=== PATIENT | female | born 1970 | race Hispanic/Latino ===

== ENCOUNTER 2019-07-10 13:51 | Emergency (ER) | payer MEDICAID, OTHER | END 2019-07-10 16:11 | disposition home or self-care (01) | LOC: EDH 13:51 | DX: J06.9 Acute upper respiratory infection, unspecified (principal); E11.9 Type 2 diabetes mellitus without complications; I11.0 Hypertensive heart disease with heart failure; I50.9 Heart failure, unspecified; Z98.890 Other specified postprocedural states | CPT/HCPCS: 71045; 87804 ==

== ENCOUNTER 2022-01-17 22:17 | Emergency (ER) | payer OTHER ==
[~2022-01-17] VITALS: Ht 154.9 cm; Wt 136.1 kg
[2022-01-17 22:53] LABS: BASOPHILS % (AUTO) 1.1 % (0.0-5.0); EOSINOPHILS % (AUTO) 11.5 % (0.0-8.0); HEMATOCRIT 42.5 % (36-48); LYMPHOCYTES % (AUTO) 33.1 % (21.0-51.0); MEAN CORPUSCULAR HGB CONC 33.2 g/dL (32.0-36.0); MEAN CORPUSCULAR VOLUME 81.3 fL (79-99); PLATELET COUNT (AUTO) 375 K/uL (130-400); RED BLOOD CELL COUNT(AUTO) 5.23 MIL/uL (4.00-5.50); RED CELL DISTRIBUTION WIDTH 12.7 % (11.0-15.5); WHITE BLOOD COUNT (AUTO) 9.9 K/uL (4.8-10.8)
[2022-01-17 22:54] LABS: APPEARANCE,URINE CLEAR (CLEAR); BILIRUBIN,URINE NEGATIVE (NEGATIVE); COLOR,URINE YELLOW (YELLOW); GLUCOSE, URINE (UA) NEGATIVE (NEGATIVE); KETONES,URINE NEGATIVE (NEGATIVE); LEUKOCYTE ESTERASE ,URINE TRACE (NEGATIVE); NITRATE,URINE NEGATIVE (NEGATIVE); OCCULT BLOOD,URINE NEGATIVE (NEGATIVE); PROTEIN,URINE TRACE mg/dL (NEGATIVE); UROBILINOGEN,URINE 0.2 mg/dL (0.2-1.0)
[2022-01-17] MEDS ORDERED: DIPHENOXYLATE HCL/ATROPINE 2.5/0.025 MG TAB PO ONE (23:00)
[2022-01-17] MEDS ORDERED: LACTATED RINGERS 1000ML 1,000 ML IV ONE (23:00)
[2022-01-17] MEDS ORDERED: ONDANSETRON 4MG INJ IVP ONE (23:00)
[2022-01-17 23:08] LABS: ALBUMIN 3.3 g/dL (3.5-5.0); POTASSIUM 2.8 mmol/L (3.5-5.1); TOTAL PROTEIN, SERUM 8.2 g/dL (6.0-8.3)
[2022-01-17 23:22] LABS: BACTERIA,URINE Few /HPF (None Seen); RBC,URINE None Seen /HPF (0-1); SQUAMOUS EPITHELIAL CELL,UR Moderate /HPF (0-2)
[2022-01-17] MEDS ORDERED: KCL 20 MEQ ERTAB PO ONE (23:30)
[2022-01-18] MEDS ORDERED: ONDA-104 PO (02:49)
[2022-01-18] MEDS ORDERED: IBUP-1493 PO (02:54)
[2022-01-18 03:00] VITALS: BP 124/52
== END 2022-01-18 03:22 | disposition home or self-care (01) ==
LOC: EDH 22:17
DX: K80.20 Calculus of gallbladder without cholecystitis without obstruction (principal); E86.0 Dehydration; E87.6 Hypokalemia; Z20.822 Contact with and (suspected) exposure to COVID-19; E11.9 Type 2 diabetes mellitus without complications; E78.00 Pure hypercholesterolemia, unspecified; I11.9 Hypertensive heart disease without heart failure; Z79.899 Other long term (current) drug therapy
CPT/HCPCS: 99285; 96374; 87635; 96361; 82150; 84484; 80053; 85025; 87804 ×2; 81001; 36415; 93005; 76705; C9803; J7120; J2405

== ENCOUNTER 2022-02-06 23:04 | Emergency (ER) | payer OTHER ==
[~2022-02-06] VITALS: Ht 154.9 cm; Wt 132.4 kg
[~2022-02-06 23:04] MED LIST: IBUP-1493 PO; ONDA-104 PO
[2022-02-07] MEDS ORDERED: ACET-2079 PO (00:29)
[2022-02-07] MEDS ORDERED: IBUP-2070 PO (00:29)
[2022-02-07] MEDS ORDERED: KETOROLAC 60 MG VIAL (30MG/ML) IM ONE (00:30)
[2022-02-07] MEDS ORDERED: HYDROCODONE/ACETAMINOPHEN 5/325 MG TAB PO ONE (00:30)
[2022-02-07 00:50] VITALS: BP 144/68
== END 2022-02-07 01:02 | disposition home or self-care (01) ==
LOC: EDH 23:04
DX: M79.2 Neuralgia and neuritis, unspecified (principal); M79.602 Pain in left arm; E11.9 Type 2 diabetes mellitus without complications; E78.00 Pure hypercholesterolemia, unspecified; I10 Essential (primary) hypertension; M19.90 Unspecified osteoarthritis, unspecified site; Z79.1 Long term (current) use of non-steroidal anti-inflammatories (NSAID); Z79.899 Other long term (current) drug therapy
CPT/HCPCS: 99283; 96372; J1885

== ENCOUNTER 2022-10-11 10:09 | Emergency (ER) | payer BC, OTHER ==
[~2022-10-11] VITALS: Ht 154.9 cm; Wt 136.1 kg
[~2022-10-11 10:09] MED LIST changes: +ACET-2079 PO; +IBUP-2070 PO
[2022-10-11 10:49] VITALS: BP 197/75
[2022-10-11] MEDS ORDERED: CYCL10TA16 PO (11:13)
[2022-10-11] MEDS ORDERED: ORPHENADRINE CITRATE 30 MG/ML ML IM ONE (11:30)
== END 2022-10-11 12:20 | disposition home or self-care (01) ==
LOC: EDH 10:09
DX: M54.32 Sciatica, left side (principal); I10 Essential (primary) hypertension; E11.9 Type 2 diabetes mellitus without complications; E78.00 Pure hypercholesterolemia, unspecified; M19.90 Unspecified osteoarthritis, unspecified site; Z79.899 Other long term (current) drug therapy; Z98.890 Other specified postprocedural states
CPT/HCPCS: 99284; 73552; 96372; J2360

== ENCOUNTER 2022-10-24 19:59 | Emergency (ER) | payer BC ==
[~2022-10-24] VITALS: Ht 154.9 cm; Wt 135.2 kg
[~2022-10-24 19:59] MED LIST changes: +CYCL10TA16 PO
[2022-10-24] MEDS ORDERED: KETOROLAC 30MG VIAL (30MG/ML) IM ONE (22:30)
[2022-10-24] MEDS ORDERED: CYCLOBENZAPRINE HCL 10 MG TABLET PO ONE (22:30)
[2022-10-24] MEDS ORDERED: TRAMADOL HCL 50 MG TABLET PO ONE (22:30)
[2022-10-24 22:35] VITALS: BP 141/75
== END 2022-10-24 22:40 | disposition home or self-care (01) ==
LOC: EDH 19:59
DX: M54.42 Lumbago with sciatica, left side (principal); I11.0 Hypertensive heart disease with heart failure; I50.9 Heart failure, unspecified; E11.9 Type 2 diabetes mellitus without complications; F32.A Depression, unspecified; E78.00 Pure hypercholesterolemia, unspecified; Z79.1 Long term (current) use of non-steroidal anti-inflammatories (NSAID); Z79.899 Other long term (current) drug therapy
CPT/HCPCS: 99284; 96372; J1885

== ENCOUNTER 2024-11-11 12:12 | Emergency (ER) | payer BC ==
[~2024-11-11] VITALS: Ht 154.9 cm; Wt 135.2 kg
[~2024-11-11 12:12] MED LIST changes: -IBUP-1493 PO; -IBUP-2070 PO; +NAPR-1194 PO; -ONDA-104 PO
[2024-11-11 13:09] LABS: BASOPHILS # (AUTO) 0.04 K/uL (0.00-0.20); BASOPHILS % (AUTO) 0.5 % (0.0-5.0); EOSINOPHILS # (AUTO) 0.09 K/uL (0.00-0.70); HEMATOCRIT 38.9 % (36-48); IMMATURE GRANULOCYTE ABSOLUTE 0.02 K/uL (0-1); LYMPHOCYTES # (AUTO) 2.9 K/uL (1.0-4.8); LYMPHOCYTES % (AUTO) 33.6 % (21.0-51.0); MEAN CORPUSCULAR HEMOGLOBIN 27.3 pg (27.0-33.0); MEAN CORPUSCULAR HGB CONC 32.9 g/dL (32.0-36.0); MEAN CORPUSCULAR VOLUME 82.9 fL (79-99); MONOCYTES # (AUTO) 0.5 K/uL (0.1-1.0); MONOCYTES % (AUTO) 5.2 % (3.0-13.0); NEUTROPHILS # (AUTO) 5.2 K/uL (1.8-7.7); NEUTROPHILS % (AUTO) 59.5 % (40.0-77.0); PLATELET COUNT (AUTO) 379 K/uL (130-400); RED BLOOD CELL COUNT(AUTO) 4.69 MIL/uL (4.00-5.50); RED CELL DISTRIBUTION WIDTH 13.2 % (11.0-15.5); WHITE BLOOD COUNT (AUTO) 8.7 K/uL (4.8-10.8)
--- NOTE | 2024-11-11 13:12 | ERN ---
General Chief Complaint: Chest Pain Stated Complaint: CP, LEFT ARM PAIN Time Seen by MD: 12:14 Source: patient History of Present Illness Initial Comments Patient is a 54-year-old female coming in complaining of left arm pain. Patient states that the left arm pain began two days ago. She states that today the pain traveled to the chest in his reason why she was here. No Shortness of breath no fever. Allergies: Coded Allergies: No Known Drug Allergies (Unverified Allergy, Unknown, 01/17/22) Home Meds Active Scripts Naproxen (Naproxen) 500 Mg Tablet, 500 MG PO BID for 5 Days, #10 TAB Prov:CHANEL PEMBERTON 10/21/23 Acetaminophen with Codeine (Acetaminophen-Cod #3 Tablet) 300 Mg-30 Mg Tablet, 1 TAB PO Q4H PRN for M17.12 for 5 Days, #7 TAB Prov:CHANEL PEMBERTON 10/21/23 Cyclobenzaprine HCl (Flexeril) 10 Mg Tab, 10 MG PO TID PRN for MUSCLE SPASMS, #15 TAB Prov:VIRY DOMINGO 10/11/22 Past Medical History Past Medical History: CHF, Depression, Diabetes-Type II, High Cholesterol, Hypertension, Other Medical History Other: HX OF SCIATIC NERVE PAIN; Past Surgical History: Other, Surgical History Other: TUBAL LIGATION Family History Family History: CAD, DM, HTN Social History Social History: Negative, Lives with family Female( History) History: Not Applicable ROS Dictation CONSTITUTIONAL: No chills, no fever, no weakness, no diaphoresis, no malaise. HEAD/FACE: No signs of trauma. EENT: No eye pain, no blurred vision, no tearing, no double vision, no ear pain, no ear discharge, no nose pain, no nasal congestion, no throat pain, no throat swelling, no mouth pain. RESPIRATORY: No cough, no orthopnea, no SOB, no stridor, no wheezing. CARDIOVASCULAR: No chest pain, no edema, no palpitations, no syncope. GASTROINTESTINAL/ABDOMINAL: No abdominal pain, no constipation, no diarrhea, no nausea, no vomiting. GENITOURINARY: No abnormal discharge, no dysuria, no frequent urination, no hematuria. No complaints of pain in the genitals. MUSCULOSKELETAL: No back pain, no gout, no joint pain, no joint swelling, muscle pain, muscle stiffness, no neck pain. INTEGUMENTARY: No change in color, no change in hair/nails, no dryness, no lesion, no lumps, no rash. NEUROLOGICAL/PSYCH: No anxiety, not depressed, no emotional problem, no headache, no numbness, no pre-existing deficit, no history of seizures, no tremors, no weakness. HEMATOLOGIC/LYMPHATIC: Not anemic, no history of blood clots, no apparent bleeding, no bruising, glands not swollen. All Systems Negative, Except as Noted. Physical Exam Physical Exam Dictation VITAL SIGNS: Reviewed. GENERAL APPEARANCE: Alert, oriented x3, no acute distress, obese. HEAD AND FACE: Non-traumatic. EYES: PERRL, pink conjunctivas, eyelid no trauma, anterior chamber clear. EARS: Pinnas intact and no signs of trauma or erythema. Ear canals clear and no discharge. TMs no erythema. NOSE: No discharge, no bleeding. OROPHARYNX: Mouth normal, teeth no caries, tongue pink. Pharynx clear, no erythema. Tonsils no exudates, no abscesses noted. Mucous membrane moist. NECK: Supple, non-tender, no thyromegaly, no masses, no JVD, no bruits. BREAST: Deferred. CHEST: tenderness, no crepitus, no paradoxical movement, no retractions. LUNGS: Clear, well-ventilated, symmetric, no rales, no wheezing, no rhonchi, no stridor, good breath sounds bilaterally. HEART: Regular rate, regular rhythm, no murmur, no gallops. VASCULAR: No peripheral edema. ABDOMEN: Soft, positive bowel sounds, nondistended, no guarding, nontender, no rebound, no masses no hepatomegaly, no splenomegaly, no Garcia's sign, no hernias. RECTAL: Deferred. GENITAL: Deferred. NEUROLOGICAL: Normal speech, gross motor function intact, gross sensory function intact. MUSCULOSKELETAL: Neck nontender, full range of motion, back nontender, full range of motion. EXTREMITIES: Nontender, full range of motion. Left deltoid pain on palpation SKIN: Color pink, dry, no turgor, no rash, no lacerations, no abrasions, no contusions. LYMPHATICS: Deferred. Results Laboratory and Microbiology Lab and Micro Result Laboratory Tests Test 11/11/24 12:31 11/11/24 15:07 White Blood Count 8.7 K/uL (4.8-10.8) Red Blood Count 4.69 MIL/uL (4.00-5.50) Hemoglobin 12.8 g/dL (12.0-16.0) Hematocrit 38.9 % (36-48) Mean Corpuscular Volume 82.9 fL (79-99) Mean Corpuscular Hemoglobin 27.3 pg (27.0-33.0) Mean Corpuscular Hemoglobin Concent 32.9 g/dL (32.0-36.0) Red Cell Distribution Width 13.2 % (11.0-15.5) Platelet Count 379 K/uL (130-400) Mean Platelet Volume 9.9 fL (7.5-10.5) Immature Granulocyte % (Auto) 0.2 % (0-1) Neutrophils (%) (Auto) 59.5 % (40.0-77.0) Lymphocytes (%) (Auto) 33.6 % (21.0-51.0) Monocytes (%) (Auto) 5.2 % (3.0-13.0) Eosinophils (%) (Auto) 1.0 % (0.0-8.0) Basophils (%) (Auto) 0.5 % (0.0-5.0) Neutrophils # (Auto) 5.2 K/uL (1.8-7.7) Lymphocytes # (Auto) 2.9 K/uL (1.0-4.8) Monocytes # (Auto) 0.5 K/uL (0.1-1.0) Eosinophils # (Auto) 0.09 K/uL (0.00-0.70) Basophils # (Auto) 0.04 K/uL (0.00-0.20) Absolute Immature Granulocyte (auto 0.02 K/uL (0-1) Nucleated Red Blood Cells 0.0 % (0.0-0.19) Sodium Level 133 mmol/L (136-145) L Potassium Level 3.3 mmol/L (3.5-5.1) L Chloride Level 99 mmol/L (101-111) L Carbon Dioxide Level 33 mmol/L (21-32) H Blood Urea Nitrogen 9 mg/dL (7-18) Creatinine 0.7 mg/dL (0.5-1.0) Glomerular Filtration Rate Calc 102 mL/min (>90) Random Glucose 134 mg/dL (70-105) H Total Calcium 8.6 mg/dL (8.5-10.1) Total Creatine Kinase 52 U/L (21-232) Troponin I High Sensitivity 14 ng/L (4-50) 13 ng/L (4-50) B-Type Natriuretic Peptide 26 pg/mL (0-100) Labs Reviewed?: Yes EKG/XRAY/US/CT/MRI EKG Comment 10/2024 time 12:18 p.m. Ventricular rate 78 Sinus rhythm [place] [address] wave elevation or depression X-RAY Comment [address] [place] [id number] IMAGING REPORT Signed PATIENT: SP TIDWELL MR#: [id number] : 1970 SEX: F AGE: 54 LOCATION: [facility] ORDER 1220 STATUS: [facility] ER REPORT#: [id number] SERVICE 1219 REASON: CHEST PAIN ORDERING PHYSICIAN: OKSANA BEARDEN MD PROCEDURE: CXR1VW - CHEST 1VW CHEST 1VW HISTORY: Chest pain COMPARISON: 07/10/2009 FINDINGS: A frontal projection of the chest was obtained. No acute pulmonary infiltrates is seen. The heart is borderline enlarged. Prominent interstitial markings are seen. Degenerative changes are seen. No evidence of aortic calcification is seen. IMPRESSION: 1. No acute pulmonary infiltrate is seen. DICTATED BY: EFREM ZULETA MD DATE: 11/11/241409 ELECTRONICALLY SIGNED BY: EFREM ZULETA MD DATE: 11/11/24 1413 [facility] MDM: Differential diagnosis: Deltoid strain, chest pain, NSTEMI, ACS, STEMI Rationale: Tests considered and ordered secondary to shared decision making include: Previous outside records reviewed: Old ER visits. Risk of complication and/or morbidity or mortality of patient management: None Medications-Per medication reconciliation Patient is a 54-year-old female coming in to be evaluated for left shoulder pain. She states that the shoulder pain extended to her chest today causes distress in decided to come in for further evaluation. Patient is a morbidly obese patient. ED Course Orders Procedure Category Date Status Time Vital Signs Per CPOE 11/11/24 Transmitted Routine 12:19 B-Type Natriuretic LAB 11/11/24 Complete Peptide 12:19 Chest 1vw RAD 11/11/24 Resulted 12:19 12 Lead Ekg Tracing- EKG 11/11/24 Logged Technical 12:19 Oxygen By Nc/Pulse Ox CPOE 11/11/24 Transmitted 12:19 Maintain Iv CPOE 11/11/24 Transmitted 12:19 Iv Insertion CPOE 11/11/24 Transmitted 12:19 Cardiac Monitoring CPOE 11/11/24 Transmitted 12:19 Pulse Oximetry With CPOE 11/11/24 Transmitted Vs And Prn 12:19 Cbc With Differential LAB 11/11/24 Complete 12:19 Activity: Br W/Brp CPOE 11/11/24 Transmitted With Assist 12:19 Creatine Kinase, Total LAB 11/11/24 Complete 12:19 Troponin I High LAB 11/11/24 Complete Sensitivity 12:19 Urinalysis Profile LAB 11/11/24 Logged 12:19 Basic Metabolic Panel LAB 11/11/24 Complete 12:19 0.9%Nacl 1000ml (Ns PHA 11/11/24 Complete 1000ml) 14:30 Potassium Bicarb/Cit PHA 11/11/24 Complete Ac 25meq (K-Lyte Ta 14:30 Troponin I High LAB 11/11/24 Complete Sensitivity 14:47 Ketorolac PHA 11/11/24 Complete Tromethamine 15mg/Ml 15:00 Current Medications Medications (Trade) Dose Ordered Sig/Nimesh Route PRN Reason Start Time Stop Time Status Last Admin Dose Admin Ketorolac Tromethamine (toRADol) 15 mg ONCE ONCE IV 11/11/24 15:00 11/11/24 15:01 DC 11/11/24 14:59 Potassium Bicarbonate (K-Lyte Tablet Eff 25 Meq Tablet.eff) 50 meq ONCE ONCE PO 11/11/24 14:30 11/11/24 14:31 DC 11/11/24 14:46 Sodium Chloride 1,000 ml @ 0 mls/hr ONCE ONCE IV 11/11/24 14:30 11/11/24 14:31 DC 11/11/24 14:46 Vital Signs Date Time Temp Pulse Resp B/P (MAP) Pulse Ox O2 Delivery O2 Flow Rate FiO2 11/11/24 14:55 98.2 16 16 151/68 98 Room Air* 0 21 11/11/24 12:16 98.8 91 16 171/94 95 Room Air 0 DX & DISP Disposition: Discharge Departure Impression: Primary Impression: Left arm pain Additional Impressions: Dehydration, Hypokalemia Condition: Stable Additional Instructions: YOU HAVE BEEN REVIEWED IN THE EMERGENCY DEPARTMENT AT [facility] AFTER PRESENTING WITH CHEST PAIN. AFTER CONSIDERING YOUR HISTORY, YOUR RISK FACTORS, YOUR EKG AND YOUR BLOOD TEST TROPONINS, HAVE BEEN FOUND TO BE AT VERY LOW RISK LESS THAN (1 IN 100) OF HAVING A MAJOR ADVERSE CARDIAC EVENT (LIKE HEART ATTACK) IN THE NEAR FUTURE. IN THE " LOW RISK" GROUP, THE RISKS OF DOING FURTHER TESTS AND TREATMENT THE INPATIENT OUTWEIGHS THE BENEFITS. IN MANY PATIENTS IN THE LOW RISK GROUP FOR THE TEST OF ANY SORT OR UNNECESSARY, HOWEVER HE SHOULD DISCUSS THIS FURTHER WITH HIS GENERAL PRACTITIONER WHO WILL UNDERSTAND THE MEDICAL AND PERSONAL BACKGROUNDS BETTER. BECAUSE WE HAVE NEVER DECLARED YOU" NO RISK" WE WOULD SUGGEST. 1 RETURNING FOR MEDICAL REVIEW IF YOU HAVE FURTHER EPISODES OF CHEST PAIN/ARM PAIN OR OTHER CONCERNING SYMPTOMS LIKE DIZZINESS, COLLAPSE, PALPITATIONS OR SHORTNESS OF BREATH. 2. FOLLOWING UP WITH YOUR LOCAL DOCTOR WHO WILL CONSIDER THE NEED FOR FURTHER TESTING AND WILL ALSO ENSURE THAT ANY MODIFIABLE RISK FACTORS YOU MAY HAVE FOR HEART DISEASE ARE OPTIMALLY MANAGED. PATIENT WILL BE DISCHARGED IN STABLE CONDITION AT THE MOMENT DISCHARGE PATIENT STATES , NO CHEST PAIN Referrals: KEVIN CRUMP DO (PCP) Time of Disposition: 15:49 OKSANA BEARDEN MD November 11, 2024 13:12
[2024-11-11 13:21] LABS: CREATININE 0.7 mg/dL (0.5-1.0); POTASSIUM 3.3 mmol/L (3.5-5.1)
[2024-11-11 13:45] LABS: B-TYPE NATRIURETIC PEPTIDE 26 pg/mL (0-100)
--- NOTE | 2024-11-11 14:13 | HMCIMG ---
CHEST 1VW HISTORY: Chest pain COMPARISON: 07/10/2009 FINDINGS: A frontal projection of the chest was obtained. No acute pulmonary infiltrates is seen. The heart is borderline enlarged. Prominent interstitial markings are seen. Degenerative changes are seen. No evidence of aortic calcification is seen. IMPRESSION: 1. No acute pulmonary infiltrate is seen.
[2024-11-11] MEDS: 0.9%NACL 1000ML 1,000 ML IV ONE (14:46)
[2024-11-11] MEDS: PoTASSium BIcarbonate/CIT AC 25 MEQ TABLET.EFF PO ONE (14:46)
[2024-11-11] MEDS: ketOROlac 15MG/ML VIAL (15MG/ML) IV ONE (14:59)
[2024-11-11 16:05] VITALS: BP 156/60; PULSE 80; RESP 16; TEMP 98.3; O2SAT 98
--- NOTE | 2024-11-12 08:04 | EKG ---
[facility] Test Date: 2024-11-11 Test Time: 12:18:12 Pat Name: SP TIDWELL Department: ED Room: Gender: F [employer]: [id number] : 1970 Requested By: OKSANA BEARDEN Order Number: [id number] Reading MD: Nael Talamantes Measurements Intervals [place] Rate: 78 P: 34 GA: 147 QRS: 1 QRSD: 79 T: 7 QT: 355 QTc: 404 Interpretive Statements Sinus rhythm Probable left atrial enlargement Probable left ventricular hypertrophy Compared to ECG 01/17/2022 22:53:45 Sinus tachycardia no longer present Myocardial infarct finding no longer present Electronically Signed On 11-12-2024 12:51:32 CDT by Nael Talamantes Please click the below link to view image of tracing.
== END 2024-11-11 16:20 | disposition home or self-care (01) ==
LOC: EDH 12:12
DX: M79.602 Pain in left arm (principal); E86.0 Dehydration; E87.6 Hypokalemia; E11.9 Type 2 diabetes mellitus without complications; E78.00 Pure hypercholesterolemia, unspecified; I11.0 Hypertensive heart disease with heart failure; I50.9 Heart failure, unspecified; Z98.51 Tubal ligation status
CPT/HCPCS: 99284; 96374; 71045; 96361; 82550; 84484 ×2; 80048; 83880; 85025; 36415; 93005; J1885; J7030